=== PATIENT | male | born 1940 | race Caucasian/White ===

== ENCOUNTER 2020-02-04 19:14 | Emergency (ER) | payer BC | END 2020-02-05 01:56 | disposition short-term general hospital (02) | LOC: ED 19:14 | DX: S42.141A Displaced fracture of glenoid cavity of scapula, right shoulder, initial encounter for closed fracture (principal); S22.31XA Fracture of one rib, right side, initial encounter for closed fracture; S42.101A Fracture of unspecified part of scapula, right shoulder, initial encounter for closed fracture; W19.XXXA Unspecified fall, initial encounter; Y93.89 Activity, other specified; Y92.89 Other specified places as the place of occurrence of the external cause; Y99.8 Other external cause status ==